=== PATIENT | male | born 1980 | race Caucasian/White ===

== ENCOUNTER 2018-03-10 21:30 | Emergency (ER) | payer SELFPAY ==
[2018-03-10 22:51] VITALS: BP 113/76; PULSE 57; RESP 20; TEMP 98.3; O2SAT 99
[2018-03-10] MEDS ORDERED: Tetanus/Diphtheria Toxoids 0.5 ml Syringe IM ONE (23:55)
[2018-03-11] MEDS ORDERED: Bacitracin 500 Units/gm Oint Foilpak UD ONE
[2018-03-11] MEDS ORDERED: Lidocaine Hydrochloride 5 ML INJ ONE
[2018-03-11] MEDS ORDERED: Tetanus/Diphtheria Toxoids 0.5 ml Syringe IM ONE (00:01)
--- NOTE | 2018-03-11 00:56 | C.PDOC ---
History Of Present Illness 38yo male, presents to ED for evaluation after he sustained a laceration to his right thumb from a sharp edge of a desk. He denies any other trauma or injury to his hand, numbness, tingling, weakness. He offers no other medical complaints. Time Seen by Provider: 03/10/18 23:19 Chief Complaint (Nursing): Abnormal Skin Integrity History Per: Patient History/Exam Limitations: no limitations Current Symptoms Are (Timing): Still Present Additional History Per: Patient Past Medical History Reviewed: Historical Data, Nursing Documentation, Vital Signs Vital Signs: Last Vital Signs Temp 98.3 F 03/10/18 22:46 Pulse 57 L 03/10/18 22:46 Resp 20 03/10/18 22:46 BP 113/76 03/10/18 22:46 Pulse Ox 99 03/11/18 12:53 - Medical History PMH: No Chronic Diseases Surgical History: No Surg Hx - [facility] Procedures CLOSURE SKIN & SUBCUTANEOUS NEC (05/13/13) TETANUS TOXOID ADMINIST (05/13/13) Family History: States: No Known Family Hx - Social History Hx Alcohol Use: Yes Hx Substance Use: No Review Of Systems Except As Marked, All Systems Reviewed And Found Negative. Constitutional: Negative for: Fever, Chills Musculoskeletal: Positive for: Other (right thumb injury) Neurological: Negative for: Weakness, Numbness Physical Exam - Physical Exam Appears: Non-toxic, No Acute Distress Skin: Warm, Dry Head: Atraumatic, Normacephalic Eye(s): bilateral: Normal Inspection, PERRL Neck: Normal ROM, Supple Chest: Symmetrical Cardiovascular: Rhythm Regular Respiratory: Normal Breath Sounds Extremity: Normal ROM (FROM of all digits on right hand), No Tenderness, Capillary Refill (< 2 seconds), No Deformity, Other (4.5 cm laceration to palmar aspect of right thumb along IP joint with no active bleeding.) Neurological/Psych: Oriented x3, Normal 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 Laceration - Laceration Repair Right thumb Wound Length (In cm): 4.5 Description Of Wound: Linear Wound Cleansed With: Betadine, Sterile Saline Anesthesia: Lidocaine 1% Wound Examination: Irrigated With Saline, No FB With Wound Exploration, No Tendon Injury With Wound Exploration Wound Closure: Suture (x 4 ) Suture Technique And Material Used: Interrupted (simple interrupted), Prolene Disposition Counseled Patient/Family Regarding: Diagnosis, Need For Followup, Rx Given - Disposition Disposition: HOME/ ROUTINE Disposition Time: 00:53 Condition: STABLE Additional Instructions: Please follow up with PMD or in clinic in 2 days for wound check Follow wound care instructions Apply antibacterial oint SUTURE REMOVAL IN 10 DAYS Return to ER if worse Instructions: Laceration Repair With Stitches (DC) Forms: [email or web address] (Amharic), Work Excuse Print Language: MARSHALLESE - Clinical Impression Clinical Impression: Laceration of thumb - 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 - Scribe Statement The provider has reviewed the documentation as recorded by the Scribe (Minnie Stout) Provider Attestation: All medical record entries made by the Scribe were at my direction and personally dictated by me. I have reviewed the chart and agree that the record accurately reflects my personal performance of the history, physical exam, medical decision making, and the department course for this patient. I have also personally directed, reviewed, and agree with the discharge instructions and disposition.
== END 2018-03-11 01:05 | disposition home or self-care (01) ==
LOC: C.ER 21:30
DX: S61.011A Laceration without foreign body of right thumb without damage to nail, initial encounter (principal); W45.8XXA Other foreign body or object entering through skin, initial encounter; Y92.9 Unspecified place or not applicable; Z23 Encounter for immunization